=== PATIENT | female | born 1960 ===

== ENCOUNTER 2022-10-11 07:30 | Inpatient (IN) ==
[2022-10-12] MEDS ORDERED: Bupivacaine 0.5% SDV PF 30ML VIAL INJ SCH
[2022-10-12] MEDS ORDERED: Gentamicin ADULT 40 MG/ML VIAL (2 ML VIAL = 80 MG) IVPB SCH
[2022-10-12] MEDS ORDERED: ceFAZolin VIAL VIAL IVPB SCH
[2022-10-12] MEDS ORDERED: Povidone Iodine 5% OPTH 30 ML BTL SCH
[2022-10-12] MEDS ORDERED: Bupivacaine 0.25% SDV 30 ML INJ SCH
[2022-10-12] MEDS ORDERED: Lactated Ringers 1000 ml BAG 1,000 ML IV SCH (06:00)
[2022-10-12] MEDS ORDERED: Buffered Lidocaine 1% SYRIN 1 ml INTRADERM ONE (06:00)
[2022-10-12] MEDS ORDERED: Ondansetron 4 mg VIAL 2 MG/ML 2 ml VIAL ONE ×2 (06:44→11:45)
[2022-10-12] MEDS ORDERED: Heparin 5000 UNITS/ML 1 mL VIAL ONE (06:44)
[2022-10-12] MEDS ORDERED: Dexamethasone IV 4 MG/ML VIAL 1 ml VIAL ONE (06:44)
[2022-10-12] MEDS ORDERED: ceFAZolin 2 GM PREMIX 2 GM/50 ML BAG ONE (06:44)
[2022-10-12] MEDS ORDERED: Scopolamine 1 mg/72hr PATCH ONE (06:44)
[2022-10-12] MEDS ORDERED: fentaNYL 100 mcg/2 ml 50 MCG/ML VIAL ONE (07:21)
[2022-10-12] MEDS ORDERED: Rocuronium 50 mg VIAL 10 mg/ml 5 ml VIAL (50 mg) ONE (07:21)
[2022-10-12] MEDS ORDERED: Midazolam 2 mg/2 ml VIAL 1 mg/ml 2 ml VIAL (2 mg) ONE (07:21)
[2022-10-12] MEDS ORDERED: Propofol 10 MG/ML 20 ML BTL ONE ×2 (07:22→11:41)
[2022-10-12] MEDS ORDERED: Lidocaine 2% PF 5 ML VIAL ONE (07:22)
[2022-10-12] MEDS ORDERED: Ketamine HCL 50 mg/ml 10 ml VIAL (500 MG) ONE (07:24)
[2022-10-12] MEDS ORDERED: Prochlorperazine 5 mg/ml 2 ml VIAL (10 mg) IV PRN (07:31)
[2022-10-12] MEDS ORDERED: Naloxone 0.4 mg VIAL 0.4 mg/ml 1 ml VIAL IV PRN (07:31)
[2022-10-12] MEDS ORDERED: HYDROmorphone 1 MG/1 ML SYRINGE IV PRN (07:31)
[2022-10-12] MEDS ORDERED: ISOSULFAN BLUE 1% 5 ML VIAL 10 MG/ML SUBCUT ONE (07:50)
[2022-10-12] MEDS ORDERED: HYDROmorphone 0.5 MG/0.5 ML SYRINGE ONE (08:15)
[2022-10-12] MEDS ORDERED: Phenylephrine 40 mcg/mL 10mL (400mcg) SYRINGE ONE (08:34)
[2022-10-12] MEDS ORDERED: HYDROcodone/ACETAMIN 5/325 mg TAB PO PRN (10:38)
[2022-10-12] MEDS ORDERED: Morphine 2 MG/ML SYRINGE IV PRN (10:39)
[2022-10-12] MEDS ORDERED: Benzocaine/Menthol LOZ PO PRN (10:41)
[2022-10-12] MEDS ORDERED: Scopolamine 1 mg/72hr PATCH TRANSDERM SCH (11:00)
[2022-10-12] MEDS ORDERED: ceFAZolin VIAL VIAL ONE (11:56)
[2022-10-12] MEDS ORDERED: Prochlorperazine 5 mg/ml 2 ml VIAL (10 mg) ONE (13:20)
[2022-10-12] MEDS: Heparin 5000 UNITS/ML 1 mL VIAL SUBCUT SCH ×2 (16:15→21:21)
[2022-10-12] MEDS: ceFAZolin 2 GM in NS PREMIX 2 GM/100 ML BAG IVPB SCH (21:21)
[2022-10-13] MEDS: ceFAZolin 2 GM in NS PREMIX 2 GM/100 ML BAG IVPB SCH (03:48)
[2022-10-13] MEDS: Heparin 5000 UNITS/ML 1 mL VIAL SUBCUT SCH (05:51)
[2022-10-13] MEDS ORDERED: POTASSIUM 99 MG PO SCH (09:00)
[2022-10-13 11:43] VITALS: BP 118/79
== END 2022-10-13 11:55 | disposition home or self-care (01) | DRG 362 ==
LOC: AA 10-12 06:09 → SSU 10-12 10:32
PROVIDERS: ADMIT Student in an Organized Health Care Education/Training Program; ATTEND Student in an Organized Health Care Education/Training Program